=== PATIENT | male | born 1955 | race American Indian/Alaskan Native ===

== ENCOUNTER 2020-07-26 07:19 | Day surgery (SDC) | payer MEDICARE ==
[2020-07-26] MEDS ORDERED: ASPIRIN EC 325 MG TAB PO ONE (07:50)
[2020-07-26 08:16] LABS: Basophils % (Auto) 0.4 % (0.0-1.8); Eosinophils # (Auto) 0.3 K/mm3 (0.0-0.4); Eosinophils % (Auto) 2.8 % (0.0-4.3); Hematocrit 48.4 % (35.5-45.6); Hemoglobin 16.1 gm/dl (11.8-15.2); Lymphocytes # (Auto) 3.5 K/mm3 (1.2-5.4); Mean Corpuscular HGB Conc 33 % (32-34); Mean Corpuscular Volume 90 fl (84-94); Monocytes # (Auto) 0.9 K/mm3 (0.0-0.8); Platelet Count 284 K/mm3 (140-440); Red Blood Count 5.36 M/mm3 (3.65-5.03); Red Cell Distribution Width 14.1 % (13.2-15.2)
[2020-07-26] MEDS ORDERED: LIDOCAINE (2%) 20 MG/1 ML VIAL 20 ML MDV INFILTRATI ONE (08:24)
[2020-07-26] MEDS: SODIUM CHLORIDE 0.9% 500 ML 500 ML IV SCH ×3 (08:25→09:20)
[2020-07-26 08:26] LABS: INR 1.22 (0.87-1.13)
[2020-07-26 08:30] LABS: BUN/Creatinine Ratio 16; Blood Urea Nitrogen 14 mg/dL (9-20); Calcium 10.6 mg/dL (8.4-10.2); Hemolysis Index 4
[2020-07-26] MEDS: MIDAZOLAM 2 MG/2 ML INJ ONE ×2 (09:14→09:24)
[2020-07-26] MEDS: fentaNYL 100 MCG/2 ML INJ ONE ×2 (09:14→09:24)
[2020-07-26] MEDS: LIDOCAINE (2%) 20 MG/1 ML VIAL 20 ML MDV INFILTRATI ONE ×2 (09:14→09:29)
[2020-07-26] MEDS: HEPARIN 10,000 UNITS/10 ML VIAL ONE ×3 (09:15→09:30)
[2020-07-26] MEDS: VERAPAMIL 5 MG/2 ML INJ ONE ×3 (09:16→09:30)
[2020-07-26] MEDS: HEPARIN/NS 5000 UNIT/500ML 1,000 ML IR ONE ×2 (09:17→09:20)
[2020-07-26] MEDS: NITROGLYCERIN SYRINGE 3 ML ONE ×3 (09:17→09:30)
--- NOTE | 2020-07-26 10:21 | Cardiac Catherization Report ---
CARDIAC CATHETERIZATION REPORT REASON FOR PROCEDURE: Abnormal thallium stress test. PROCEDURES: 1. Left heart catheterization. 2. Selective left and right coronary angiography. 3. Left ventricular angiography. 4. Sedation time, start 0924 hours and 0947 hours. I was present for the entire procedure and supervised the moderate sedation protocol. DESCRIPTION OF PROCEDURE: The patient was prepped and draped in a sterile fashion after informed consent. The right radial cath site was prepped and draped after a negative Tremayne's test. The right radial artery was entered using Seldinger technique followed by placement of a 6-Cam[place]onian hydrophilic sheath. Routine radial cocktail was administered via the sheath. Selective left and right coronary angiography was performed using a #3.5 left Alexandrea and a #4 right Alexandrea. A pigtail catheter was used for left ventricular angiography. The catheters were then removed, sheath removed, and hemostasis achieved using a TR band. The patient was returned to the postprocedure unit in stable condition. There were no complications. FINDINGS: HEMODYNAMICS: Left ventricular end-diastolic pressure was 14, following coronary angiography. Ascending aortic pressure was 121/64. There was no significant pressure gradient on pullback across the aortic valve. CORONARY ANGIOGRAPHY: The left main coronary artery was angiographically normal. There was a 30-50% stenosis of the proximal LAD. This was followed by another, 50-70% stenosis located in the mid to distal LAD. The circumflex artery and its obtuse marginal branches contained no significant disease. The right coronary artery was dominant and contained mild luminal irregularities in its proximal and mid segments. There was well preserved left ventricular systolic function, ejection fraction 55%. CONCLUSIONS: 1. Single vessel, moderate severity, nonocclusive stenosis of the left anterior descending. 2. Well-preserved left ventricular systolic function, ejection fraction 55%. RECOMMENDATION: 1. Aggressive risk factor modification and medical therapy. 2. Serial clinical and noninvasive followup of nonobstructive LAD disease. JOB# [id number] KARISSA/NTS
[2020-07-26] MEDS ORDERED: traMADol 50 MG TAB PO PRN (10:44)
[2020-07-26] MEDS ORDERED: HYDROcodone/ACETAMINOPHEN 5-325 MG TAB PO PRN (10:44)
[2020-07-26] MEDS ORDERED: SODIUM CHLORIDE 0.9% 1000 ML 1,000 ML IV SCH (10:45)
--- NOTE | 2020-07-26 10:49 | Discharge Summary ---
Short Stay Discharge Plan Activity: advance as tolerated Weight Bearing Status: Full Weight Bearing Diet: low fat, low cholesterol, low salt, diabetic Wound: keep clean and dry Special Instructions: smoking cessation, no heavy lifting (3 days), hold Metformin (48 hours) Additional Instructions: HOLD METFORMIN FOR 48 HRS ONLY Follow up with: DR MELISSA [Other] - 7 Days PIOTR GUERRA MD [Staff Physician] - 7 Days
[2020-07-26 14:27] VITALS: BP 113/69
== END 2020-07-26 07:20 | disposition home or self-care (01) ==
LOC: CATHLABREC 07:19 → EDSEX 07:19 → CATHLABREC 07:20
PROVIDERS: ATTEND Internal Medicine Cardiovascular Disease
DX: R94.39 Abnormal result of other cardiovascular function study (principal); I25.10 Atherosclerotic heart disease of native coronary artery without angina pectoris; E78.00 Pure hypercholesterolemia, unspecified; I10 Essential (primary) hypertension; G47.30 Sleep apnea, unspecified; F17.210 Nicotine dependence, cigarettes, uncomplicated; M19.90 Unspecified osteoarthritis, unspecified site; Z72.89 Other problems related to lifestyle; Z79.899 Other long term (current) drug therapy; Z79.82 Long term (current) use of aspirin; Z98.890 Other specified postprocedural states; Z82.49 Family history of ischemic heart disease and other diseases of the circulatory system; Z79.01 Long term (current) use of anticoagulants
CPT/HCPCS: 36415; 80048; 85025; 85610; 85730; 93005; 93458; 99156; 99157; C1894; J1644; J2250; J3010; J7040; Q9967